=== PATIENT | female | born 1970 | race Caucasian/White ===

== ENCOUNTER 2022-05-22 08:24 | Day surgery (SDC) | payer BC ==
[~2022-05-22] VITALS: Ht 162.6 cm; Wt 77.1 kg
[2022-05-22] MEDS ORDERED: SIMETHICONE 40 MG/0.6 ML ML ONE (09:19)
[2022-05-22] MEDS ORDERED: MEPERIDINE HCL/PF 25 MG/ML DISP.SYRIN ONE (09:20)
[2022-05-22] MEDS ORDERED: MIDAZOLAM HCL 5 MG/5 ML VIAL ONE (09:20)
[2022-05-22 18:10] VITALS: BP_SYST 89
== END 2022-05-22 12:30 | disposition home or self-care (01) ==
LOC: SDS 08:24 → SMU 08:30 → SDS 12:30
PROVIDERS: ATTEND Internal Medicine Gastroenterology
DX: Z12.11 Encounter for screening for malignant neoplasm of colon (principal); K63.5 Polyp of colon; R13.10 Dysphagia, unspecified; K64.8 Other hemorrhoids; K21.9 Gastro-esophageal reflux disease without esophagitis; K29.50 Unspecified chronic gastritis without bleeding; Z79.899 Other long term (current) drug therapy; Z20.822 Contact with and (suspected) exposure to COVID-19
CPT/HCPCS: 36415 ×2; 45380; 43239; 87426; 87081; 88305; 88312; 88313; 88342; 99152; 99153; U0003; G0378; J2250; J2175